=== PATIENT | female | born 1925 | race Caucasian/White ===

== ENCOUNTER 2016-12-11 16:16 | Emergency (ER) | payer MEDICARE, OTHER ==
[~2016-12-11] VITALS: Ht 162.6 cm; Wt 65.3 kg
[~2016-12-11 16:16] MED LIST: Z.0.UNABLE TO OBTAIN; ZOFR4TAB OR
[2016-12-11 16:20] VITALS: BP 158/99; PULSE 71; RESP 16; TEMP 97.8; O2SAT 95
[2016-12-11] MEDS ORDERED: OXYB5TAB10 PO (16:34)
[2016-12-11] MEDS ORDERED: LISI-515 PO (16:34)
[2016-12-11] MEDS ORDERED: LIDOCAINE 1%/EPINEPHrine 1:100,000 SOLN 20 ML VIAL INFIL ONE (16:45)
[2016-12-11] MEDS ORDERED: LIDOCAINE 1%/EPINEPHrine 1:100,000 SOLN 30 ML VIAL INFIL ONE (16:45)
[2016-12-11] MEDS ORDERED: DIPHTH/TETANUS/ACEL PERTUSSIS (BOOSTER) 0.5 ML VIAL/PFS IM ONE (16:45)
--- NOTE | 2016-12-11 17:10 | RADRPT ---
EXAM DATE/TIME: 12/11/2016 16:40 [facility] COMPARISON: No previous studies available for comparison. INDICATIONS : Laceration lower leg. MEDICAL HISTORY : None. SURGICAL HISTORY : None. ENCOUNTER: Initial ACUITY: 1 day PAIN SCORE: 10 LOCATION: Right tibia fibula FINDINGS: No acute fracture or dislocation of the right tibia or fibula is noted. No radiopaque foreign body i s noted. Degenerative changes are noted involving the patellofemoral and femoral tibial joints. CONCLUSION: 1. No acute fracture or dislocation of the right tibia or fibula. 2. No radiopaque foreign body identified. 3. Degenerative changes involving the patellofemoral and femoral tibial joints. Kevin Cunningham MD on December 11, 2016 at 17:02 Board Certified Radiologist. This report was verified electronically.
--- NOTE | 2016-12-11 18:05 | PD ---
HPI Chief Complaint: Fall Time Seen by Provider: 16:26 Travel History International Travel<30 days: No Contact w/Intl Traveler<30days: No Traveled to known affect area: No History of Present Illness HPI 89-year-old woman, visiting from out of town, slipped and fell in the shower. She states there is a little lip to get in and she lost her balance and fell. She has a large skin tear on her right leg. She denies hitting her head. Denies any head neck or back pain. No other complaints. History Past Medical History Narrative Medical Hypertension Social History Alcohol Use: No Tobacco Use: No Allergies-Medications (Allergen,Severity, Reaction): Coded Allergies: No Known Allergies (Unverified , 12/11/16) Reported Meds & Prescriptions Reported Meds & Active Scripts Active Reported Ditropan (Oxybutynin Chloride) 5 Mg Tab 5 Mg PO Q12HR Lisinopril 20 Mg Tab 20 Mg PO DAILY Review of Systems Except as stated in HPI: all other systems reviewed are Neg Physical Exam Narrative GENERAL: Well-appearing 89-year-old woman, no acute distress. SKIN: Warm and dry. CARDIOVASCULAR: Warm and well perfused. RESPIRATORY: Normal rate and effort. MUSCULOSKELETAL: Large approximately 12 cm deep skin tear type laceration to the right calf. Skin tear is very superficial in the middle but progresses to a deep laceration at more vertical towards the edges, and into the subcutaneous tissue throughout. There is no significant tenderness in other areas. No bony tenderness. NEUROLOGICAL: Awake and alert. No gross deficits. Data Data Last Documented VS Vital Signs Date Time Temp Pulse Resp B/P Pulse Ox O2 Delivery O2 Flow Rate FiO2 12/11/16 16:20 97.8 71 16 158/99 95 Orders Tibia/Fibula (Ap/Lat) (12/11/16 ) [id number] (Booster) Inj (Boostrix (12/11/16 16:45) Lidocai-Epi 1%-1:100,000 Inj (Xylocaine- (12/11/16 16:45) Lidocai-Epi 1%-1:100,000 Inj (Xylocaine- (12/11/16 16:45) MDM Medical Decision Making Medical Screen Exam Complete: Yes Emergency Medical Condition: Yes Interpretation(s) Right leg x-ray was negative Differential Diagnosis Skin tear, laceration, bony injury, other Narrative Course Medical decision making INITIAL: 89-year-old woman who presents to the emergency department complaining of laceration and skin tears in the right leg. X-ray was negative. Laceration was repaired primarily through complex laceration repair techniques including taping the edge of the wound with Steri-Strips, using vertical mattress sutures to reduce tension, horizontal mattress sutures on the edges, and maintaining skin approximation with Steri-Strips. Procedures Procedure Narrative Laceration repair: Complex laceration, approximately 15 cm, in a patient with edema in the leg and soft elderly thin skin. The wound was anesthetized 1% lidocaine with epinephrine. Using clamps with 1 L of sterile saline under pressure. Was then cleansed with chlorhexidine and Betadine and sterilely prepped. Steri-Strips were placed along the edges of the wound, avoiding the extremely thin areas of the skin tear toward the middle of the wound on the posterior side. The wound was then pulled together several areas with vertical mattress sutures using 3-0 Ethilon. Around the edges several horizontal mattress sutures were placed. A couple sutures in place in the middle to maintain wound approximation. Dermabond was then used to maintain approximation of the skin edges. Patient tolerated well. Sterile dressing was applied. In total 12 sutures were placed. This was a complex laceration repair. Diagnosis Primary Impression: Leg laceration Patient Instructions: General Instructions Additional Instructions: Keep wound clean and dry. Do not wet for 24 hours. After 24 hours and clean the wound gently with soap and water. Gently clean wound twice daily with soap and water. Do not soak wound. No swimming, hot tubs, or allowing wound to get too wet. Return to the emergency department for any worsening pain, swelling, redness, significant bleeding, or any other new or worsening symptoms. Keep leg wrapped with compression dressing. Keep leg elevated as much as possible. Return to the emergency department in 14 days for suture removal. Keep leg wrapped with compression dressing for 1 month until completely healed. Med/Other Pt SpecificInfo: No Change to Meds Disposition: 01 DISCHARGE HOME Condition: Stable Woo Moss MD Dec 11, 2016 18:05
== END 2016-12-11 18:11 | disposition home or self-care (01) ==
LOC: PHED 16:16
DX: S81.811A Laceration without foreign body, right lower leg, initial encounter (principal); I10 Essential (primary) hypertension; Z23 Encounter for immunization; W18.2XXA Fall in (into) shower or empty bathtub, initial encounter; Y93.9 Activity, unspecified; Y92.9 Unspecified place or not applicable; Y99.9 Unspecified external cause status
CPT/HCPCS: 13121; 13122; 73590; 90471; 90715

== ENCOUNTER 2016-12-15 19:23 | Emergency (ER) | payer MEDICARE, OTHER ==
[~2016-12-15] VITALS: Ht 162.6 cm; Wt 68.5 kg
[~2016-12-15 19:23] MED LIST changes: +LISI-515 PO; +OXYB5TAB10 PO; -Z.0.UNABLE TO OBTAIN; -ZOFR4TAB OR
[2016-12-15 19:26] VITALS: BP 175/101; PULSE 68; RESP 18; TEMP 98.1; O2SAT 95
[2016-12-15 19:52] VITALS: BP 191/86
[2016-12-15] MEDS ORDERED: CLINDAMYCIN 150 MG CAP PO ONE (20:00)
--- NOTE | 2016-12-15 20:01 | PD ---
HPI Chief Complaint: Skin Problem Time Seen by Provider: 19:33 Travel History International Travel<30 days: No Contact w/Intl Traveler<30days: No Traveled to known affect area: No History of Present Illness HPI 89-year-old female who was seen in the emergency department on 12/11/16 for complicated right leg laceration that was repaired at that time, here today with her son for evaluation of the laceration for possible infection. The son has been performing dressing changes twice daily and has been cleansing the wound with soap and water. He has also been applying a pressure dressing to the right lower extremity. They started noticing some erythema and warmth surrounding the wound yesterday, and it appeared to be a little bit worse today. Patient denies any pain to the extremity. She has not had any fevers or chills. PFSH Past Medical History Cardiovascular Problems: Yes (HTN) Diminished Hearing: No Genitourinary: Yes (STRESS INCONTINENCE) Hypertension: Yes Medical other: Yes (MACULAR DEGENERATION) Immunizations Current: Yes ?: Not Menopausal: Yes : 3 Para: 3 Past Surgical History Hysterectomy: Yes Joint Replacement: Yes (RIGHT HIP) Tonsillectomy: Yes Social History Alcohol Use: No Tobacco Use: No Substance Use: No Allergies-Medications (Allergen,Severity, Reaction): Coded Allergies: No Known Allergies (Unverified , 12/15/16) Reported Meds & Prescriptions Reported Meds & Active Scripts Active Reported Ditropan (Oxybutynin Chloride) 5 Mg Tab 5 Mg PO Q12HR Lisinopril 20 Mg Tab 20 Mg PO DAILY Review of Systems Except as stated in HPI: all other systems reviewed are Neg Physical Exam Narrative GENERAL: Pleasant, well-developed, well-nourished, comfortable, no acute distress. SKIN: Right lateral leg laceration with [address] with small area of surrounding warmth and erythema, no purulent drainage, no induration, no crepitus, no red streaks. HEAD: Atraumatic. Normocephalic. EYES: Pupils equal and round. No scleral icterus. No injection or drainage. ENT: Mucous membranes pink and moist. NECK: Trachea midline. No JVD. CARDIOVASCULAR: Regular rate and rhythm. Bilateral dorsalis pedis pulses are brisk and equal. RESPIRATORY: No accessory muscle use. Clear to auscultation. Breath sounds equal bilaterally. GASTROINTESTINAL: Abdomen soft, non-tender, nondistended. MUSCULOSKELETAL: Skin exam as above. Moderate bilateral lower extremity edema. Bilateral calves are supple and nontender. NEUROLOGICAL: Awake and alert. No obvious cranial nerve deficits. Motor grossly within normal limits. Normal speech. PSYCHIATRIC: Appropriate mood and affect; insight and judgment normal. Data Data Last Documented VS Vital Signs Date Time Temp Pulse Resp B/P Pulse Ox O2 Delivery O2 Flow Rate FiO2 12/15/16 19:52 191/86 12/15/16 19:26 98.1 68 18 95 Orders Clindamycin (Cleocin) (12/15/16 20:00) Tibia/Fibula (Ap/Lat) (12/15/16 ) Wound Culture And Gram Stain (12/15/16 20:17) [facility] Medical Decision Making Medical Screen Exam Complete: Yes Emergency Medical Condition: Yes Medical Record Reviewed: Yes Differential Diagnosis Cellulitis, wound infection, necrotizing fasciitis unlikely, Narrative Course Vital signs show heart rate 68, blood pressure 175/101, pulse ox 95% on room air , oral temp of 98.1F. Right tib-fib x-ray: CONCLUSION: Soft tissue prominence and apparent edema with no evidence of fracture or malalignment. This is an 89-year-old female who 4 days ago presented to the emergency department with complicated right leg laceration that was repaired in the emergency department. She returns today with her son for evaluation of warmth and erythema surrounding the wound. On exam there is a mild area of surrounding warmth and erythema. Sutures are in place and are reinforced with Steri-Strips along the wound edges. There is no crepitus on exam. No signs of lymphangitis. Patient overall appears well. Her vital signs show that she is slightly hypertensive. No signs of sepsis. Because of the complicated repair to this wound, I do not believe it is stone to remove sutures at this time as this may lead to worsening further complications. Plan is to start her on clindamycin. Patient's son has been doing an excellent job performing wound care. She should return to the emergency department in 48-72 hours for a wound check. Both patient and the patient's son were informed on when they should return sooner. They verbalized understanding and agreement with plan. Diagnosis Primary Impression: Cellulitis of right leg Referrals: EMERGENCY DEPARTMENT 3 days Additional Instructions: Return to the emergency department in 48-72 hours for wound check. Return to the emergency Department sooner for worsening symptoms or any other concerns as discussed. Scripts Clindamycin 150 Mg [id number] Mg PO Q6H 10 Days Ref 0 Prov:Nima Lopez MD 12/15/16 Disposition: 01 DISCHARGE HOME Condition: Stable Nima Lopez MD Dec 15, 2016 20:01
--- NOTE | 2016-12-15 20:31 | RADRPT ---
EXAM DATE/TIME: 12/15/2016 20:09 [facility] COMPARISON: TIBIA/FIBULA RIGHT (AP/LAT), December 11, 2016, 16:40. INDICATIONS : Right lower leg inflammation post fall. MEDICAL HISTORY : None. SURGICAL HISTORY : None. ENCOUNTER: [facility] ACUITY: 4 - 6 days PAIN SCORE: 6/10 LOCATION: Right lower leg FINDINGS: Two view examination of the right tibia demonstrates no evidence of fracture or dislocation. Bony mi neralization is normal. There is diffuse soft tissue prominence apparent edema. There are faint benig n soft tissue calcifications. CONCLUSION: Soft tissue prominence and apparent edema with no evidence of fracture or malalignment. Daniel Sanchez MD on December 15, 2016 at 20:28 Board Certified Radiologist. This report was verified electronically.
[2016-12-15] MEDS ORDERED: CLIN1CAP5 PO (20:39)
== END 2016-12-15 20:52 | disposition home or self-care (01) ==
LOC: PHED 19:23
DX: L03.115 Cellulitis of right lower limb (principal); I10 Essential (primary) hypertension; H35.30 Unspecified macular degeneration
CPT/HCPCS: 73590; 86403; 87070; 87186; 87205; 99284

== ENCOUNTER 2016-12-19 16:34 | Inpatient (IN) | payer MEDICARE, OTHER ==
[~2016-12-19] VITALS: Ht 162.6 cm; Wt 68.5 kg
[~2016-12-19 16:34] MED LIST changes: +CLIN1CAP5 PO
[2016-12-19 16:44] VITALS: BP 124/78; PULSE 63; RESP 16; TEMP 98; O2SAT 95
[2016-12-19] MEDS ORDERED: VANCOMYCIN INJ 1,000 MG in SODIUM CHLOR 0.9% 250 ML INJ 250 ML IV STA (17:44)
--- NOTE | 2016-12-19 17:50 | PD ---
HPI Chief Complaint: Wound/Suture/Staple Re-Check Time Seen by Provider: 17:15 Travel History International Travel<30 days: No Contact w/Intl Traveler<30days: No Traveled to known affect area: No History of Present Illness HPI 89-year-old female presents to the emergency Department for reevaluation of right lower extremity cellulitis. Patient was seen in the emergency department on December 11 with a right lower extremity laceration caused by a fall in the shower. The wound was sutured closed at that time. On December 15 patient was seen again in the ER and diagnosed with right lower externa cellulitis. She was discharged home on clindamycin. She presents today for recheck of the wound. Patient's son who is her caregiver reports that she has had generalized weakness and another fall since her last visit. He reports that she has difficulty taking the clindamycin capsules. He indicates that he is concerned that she is declining. PFSH Past Medical History Narrative Medical Significant for hypertension Cardiovascular Problems: Yes Diminished Hearing: No Genitourinary: Yes (STRESS INCONTINENCE) Hypertension: Yes Immunizations Current: Yes ?: Not Menopausal: Yes : 3 Para: 3 Past Surgical History Hysterectomy: Yes Joint Replacement: Yes (RIGHT HIP) Tonsillectomy: Yes Social History Alcohol Use: No Tobacco Use: No Substance Use: No Allergies-Medications (Allergen,Severity, Reaction): Coded Allergies: No Known Allergies (Unverified , 12/19/16) Reported Meds & Prescriptions Reported Meds & Active Scripts Active Clindamycin (Clindamycin HCl) 150 Mg Cap 450 Mg PO Q6H 10 Days Reported Ditropan (Oxybutynin Chloride) 5 Mg Tab 5 Mg PO Q12HR Lisinopril 20 Mg Tab 20 Mg PO DAILY Review of Systems Except as stated in HPI: all other systems reviewed are Neg General / Constitutional: No: Fever HENT: No: Headaches Cardiovascular: No: Chest Pain or Discomfort Respiratory: No: Shortness of Breath Genitourinary: Positive: Frequency Skin: Positive Other (15 cm laceration right lower extremity sutures intact with surrounding erythema no drainage) Physical Exam Narrative GENERAL: Alert elderly female no acute distress SKIN: Large laceration approximately 15 cm right lower extremity with sutures and Steri-Strips in place. The wound has extensive surrounding erythema and mild swelling. No drainage from the site. HEAD: Atraumatic. Normocephalic. EYES: Pupils equal and round. No scleral icterus. No injection or drainage. ENT: No nasal bleeding or discharge. Mucous membranes pink and moist. NECK: Trachea midline. No JVD. CARDIOVASCULAR: Regular rate and rhythm. No murmur appreciated. RESPIRATORY: No accessory muscle use. Clear to auscultation. Breath sounds equal bilaterally. GASTROINTESTINAL: Abdomen soft, non-tender, nondistended. Hepatic and splenic margins not palpable. MUSCULOSKELETAL: No obvious deformities. No clubbing. No cyanosis. No edema. NEUROLOGICAL: Awake and alert. No obvious cranial nerve deficits. Motor grossly within normal limits. Normal speech. PSYCHIATRIC: Appropriate mood and affect; insight and judgment normal. Data Data Last Documented VS Vital Signs Date Time Temp Pulse Resp B/P Pulse Ox O2 Delivery O2 Flow Rate FiO2 12/19/16 16:44 98.0 63 16 124/78 95 Orders Complete Blood Count With Diff (12/19/16 17:44) Comprehensive Metabolic Panel (12/19/16 17:44) Lactic Acid Sepsis Protocol (12/19/16 17:44) Urinalysis - C+S If Indicated (12/19/16 17:44) Blood Culture (12/19/16 17:44) Iv Access Insert/Monitor (12/19/16 17:44) Vancomycin Inj (Vancomycin Inj) (12/19/16 17:44) Urine Culture (12/19/16 18:00) Ceftriaxone Inj (Rocephin Inj) (12/19/16 19:15) Labs Laboratory Tests Test 12/19/16 12/19/16 12/19/16 18:00 18:05 18:10 Urine Collection Type CLEAN CATCH Urine Color STRAW Urine Turbidity SLIGHT Urine pH 5.5 Urine Specific [place] 1.008 Urine Protein NEG mg/dL Urine Glucose (UA) NEG mg/dL Urine Ketones NEG mg/dL Urine Occult Blood NEG Urine Nitrite POS Urine Bilirubin NEG Urine Leukocyte Esterase SMALL Urine RBC 0-3 /hpf Urine WBC 50-99 /hpf Urine WBC Clumps MOD Urine Squamous Epithelial > 8 /hpf Cells Urine Amorphous Sediment FEW Urine Bacteria MOD /hpf Microscopic Urinalysis Comment CULTURE INDICATED Urine Collection Time 1800 White Blood Count 11.1 TH/MM3 Red Blood Count 3.72 MIL/MM3 Hemoglobin 11.0 GM/DL Hematocrit 33.7 % Mean Corpuscular Volume 90.7 FL Mean Corpuscular Hemoglobin 29.6 PG Mean Corpuscular Hemoglobin 32.6 % Concent Red Cell Distribution Width 13.7 % Platelet Count 277 TH/MM3 Mean Platelet Volume 8.4 FL Neutrophils (%) (Auto) 79.0 % Lymphocytes (%) (Auto) 12.1 % Monocytes (%) (Auto) 6.7 % Eosinophils (%) (Auto) 1.8 % Basophils (%) (Auto) 0.4 % Neutrophils # (Auto) 8.9 TH/MM3 Lymphocytes # (Auto) 1.3 TH/MM3 Monocytes # (Auto) 0.7 TH/MM3 Eosinophils # (Auto) 0.2 TH/MM3 Basophils # (Auto) 0.0 TH/MM3 CBC Comment DIFF FINAL Differential Comment Sodium Level 138 MEQ/L Potassium Level 4.4 MEQ/L Chloride Level 103 MEQ/L Carbon Dioxide Level 27.5 MEQ/L Anion Gap 8 MEQ/L Blood Urea Nitrogen 30 MG/DL Creatinine 0.97 MG/DL Estimat Glomerular Filtration 54 ML/MIN Rate Random Glucose 108 MG/DL Calcium Level 8.8 MG/DL Total Bilirubin 0.4 MG/DL Aspartate Amino Transf 26 U/L (AST/SGOT) Alanine Aminotransferase 26 U/L (ALT/SGPT) Alkaline Phosphatase 95 U/L Total Protein 7.0 GM/DL Albumin 3.2 GM/DL Lactic Acid Level 0.8 mmol/L MDM Medical Decision Making Medical Screen Exam Complete: Yes Emergency Medical Condition: Yes Differential Diagnosis Cellulitis failing outpatient oral antibiotics, wound infection, UTI Narrative Course 89-year-old female here for recheck of right lower extremity laceration with cellulitis. Patient sustained the injury on December 11 and was sutured here in emergency department. She was seen again on December 15 and diagnosed with cellulitis and discharged home with clindamycin. Patient presents today for recheck of the wound which does not appear clinically improved per Dr. Colbert who treated her on the . The son is also concerned about the patient's overall health reporting that she has generalized weakness and has had frequent falls. Labs ordered and reviewed. Patient has elevated white blood cell count of 11.1 , UA positive for nitrates, white blood cells, bacteria. Patient will be admitted to observation for right lower external cellulitis, failing outpatient treatment, UTI. Dr. Lopez attending physician spoke with Dr. Emerald Allison who agrees to admit patient for observation. Diagnosis Primary Impression: Cellulitis of right leg Additional Impressions: Failure of outpatient treatment UTI (urinary tract infection) Qualified Code: N30.00 - Acute cystitis without hematuria Admitting Information Admitting Physician Requests: Observation Yen Lee Dec 19, 2016 17:50
[2016-12-19 18:24] LABS: BLOOD, URINE NEG (NEG); GLUCOSE,URINE NEG (NEG); KETONE, URINE NEG (NEG); NITRITE,URINE POS (NEG); PH, URINE 5.5 (5.0-8.5)
[2016-12-19 18:26] LABS: AUTOMATED NEUTROPHIL # 8.9 TH/MM3 (1.8-7.7); BASOPHIL % 0.4 % (0.0-2.0); EOSINOPHIL # 0.2 TH/MM3 (0-0.4); EOSINOPHIL % 1.8 % (0.0-4.0); HEMATOCRIT 33.7 % (35.0-46.0); HEMO FLAGS DIFF FINAL; LYMPH % 12.1 % (9.0-44.0); LYMPHOCYTE # 1.3 TH/MM3 (1.0-4.8); MEAN CELL VOLUME 90.7 FL (80.0-100.0); MEAN CORPUSCULAR HEMOGLOBIN 29.6 PG (27.0-34.0); MEAN CORPUSCULAR HGB CONC 32.6 % (32.0-36.0); MONO % 6.7 % (0.0-8.0); PLATELET COUNT 277 TH/MM3 (150-450); RED BLOOD COUNT 3.72 MIL/MM3 (4.00-5.30); RED CELL DISTRIBUTION WIDTH 13.7 % (11.6-17.2); WHITE BLOOD COUNT 11.1 TH/MM3 (4.0-11.0)
[2016-12-19 18:47] LABS: CHLORIDE 103 MEQ/L (98-107); POTASSIUM 4.4 MEQ/L (3.5-5.1); SODIUM (NA) 138 MEQ/L (136-145)
[2016-12-19 18:51] LABS: ANION GAP 8 MEQ/L (5-15); BICARBONATE 27.5 MEQ/L (21.0-32.0); BLOOD UREA NITROGEN 30 MG/DL (7-18)
[2016-12-19 18:54] LABS: ALT (GPT) 26 U/L (10-53); AST (GOT) 26 U/L (15-37); GLOMERULAR FILTRATION RATE 54 ML/MIN (>89)
[2016-12-19 18:54] LABS: METHOD OF COLLECTION CLEAN CATCH; URINE COLOR STRAW (YELLW/STRAW)
[2016-12-19 18:55] LABS: BACTERIA, URINE MOD /hpf; COMMENT (UR) CULTURE INDICATED; CULTURE IF INDICATED CULTURE INDICATED; RBC, URINE 0-3 /hpf (0-3); SQUAMOUS EPITHELIAL CELL URINE > 8 /hpf (0-5)
[2016-12-19 18:55] LABS: TOTAL BILIRUBIN ADULT 0.4 MG/DL (0.2-1.0)
[2016-12-19 18:57] LABS: ALKALINE PHOSPHATASE 95 U/L (45-117)
[2016-12-19] MEDS ORDERED: SODIUM CHLORIDE 0.9% FLUSH 10 ML FLUSH IV FLUSH PRN (19:15)
[2016-12-19] MEDS ORDERED: ACETAMINOPHEN 325 MG TAB PO PRN (19:15)
[2016-12-19] MEDS ORDERED: MAGNESIUM HYDROXIDE SUSP 30 ML CUP PO PRN (19:15)
[2016-12-19] MEDS ORDERED: LACTULOSE SYRUP 20 GM/30 ML CUP PO PRN (19:15)
[2016-12-19] MEDS ORDERED: BISACODYL 10 MG SUPP RECTAL PRN (19:15)
[2016-12-19] MEDS ORDERED: ONDANSETRON HCL 4 MG/2 ML VIAL IVP PRN (19:15)
[2016-12-19] MEDS ORDERED: SENNOSIDES 8.6 MG TAB PO PRN (19:15)
[2016-12-19] MEDS ORDERED: cefTRIAXone INJ 1,000 MG in SODIUM CHLORIDE 0.9% INJ 100 ML IV ONE (19:15)
[2016-12-19] MEDS ORDERED: Vancomycin Consult Pharmacy 1 EA OTHER SCH (19:15)
--- NOTE | 2016-12-19 19:18 | PD ---
Data Data Last Documented VS Vital Signs Date Time Temp Pulse Resp B/P Pulse Ox O2 Delivery O2 Flow Rate FiO2 12/19/16 16:44 98.0 63 16 124/78 95 Orders Complete Blood Count With Diff (12/19/16 17:44) Comprehensive Metabolic Panel (12/19/16 17:44) Lactic Acid Sepsis Protocol (12/19/16 17:44) Urinalysis - C+S If Indicated (12/19/16 17:44) Blood Culture (12/19/16 17:44) Iv Access Insert/Monitor (12/19/16 17:44) Vancomycin Inj (Vancomycin Inj) (12/19/16 17:44) Urine Culture (12/19/16 18:00) Ceftriaxone Inj (Rocephin Inj) (12/19/16 19:15) Labs Laboratory Tests Test 12/19/16 12/19/16 12/19/16 18:00 18:05 18:10 Urine Collection Type CLEAN CATCH Urine Color STRAW Urine Turbidity SLIGHT Urine pH 5.5 Urine Specific [place] 1.008 Urine Protein NEG mg/dL Urine Glucose (UA) NEG mg/dL Urine Ketones NEG mg/dL Urine Occult Blood NEG Urine Nitrite POS Urine Bilirubin NEG Urine Leukocyte Esterase SMALL Urine RBC 0-3 /hpf Urine WBC 50-99 /hpf Urine WBC Clumps MOD Urine Squamous Epithelial > 8 /hpf Cells Urine Amorphous Sediment FEW Urine Bacteria MOD /hpf Microscopic Urinalysis Comment CULTURE INDICATED Urine Collection Time 1800 White Blood Count 11.1 TH/MM3 Red Blood Count 3.72 MIL/MM3 Hemoglobin 11.0 GM/DL Hematocrit 33.7 % Mean Corpuscular Volume 90.7 FL Mean Corpuscular Hemoglobin 29.6 PG Mean Corpuscular Hemoglobin 32.6 % Concent Red Cell Distribution Width 13.7 % Platelet Count 277 TH/MM3 Mean Platelet Volume 8.4 FL Neutrophils (%) (Auto) 79.0 % Lymphocytes (%) (Auto) 12.1 % Monocytes (%) (Auto) 6.7 % Eosinophils (%) (Auto) 1.8 % Basophils (%) (Auto) 0.4 % Neutrophils # (Auto) 8.9 TH/MM3 Lymphocytes # (Auto) 1.3 TH/MM3 Monocytes # (Auto) 0.7 TH/MM3 Eosinophils # (Auto) 0.2 TH/MM3 Basophils # (Auto) 0.0 TH/MM3 CBC Comment DIFF FINAL Differential Comment Sodium Level 138 MEQ/L Potassium Level 4.4 MEQ/L Chloride Level 103 MEQ/L Carbon Dioxide Level 27.5 MEQ/L Anion Gap 8 MEQ/L Blood Urea Nitrogen 30 MG/DL Creatinine 0.97 MG/DL Estimat Glomerular Filtration 54 ML/MIN Rate Random Glucose 108 MG/DL Calcium Level 8.8 MG/DL Total Bilirubin 0.4 MG/DL Aspartate Amino Transf 26 U/L (AST/SGOT) Alanine Aminotransferase 26 U/L (ALT/SGPT) Alkaline Phosphatase 95 U/L Total Protein 7.0 GM/DL Albumin 3.2 GM/DL Lactic Acid Level 0.8 mmol/L MDM Supervised Visit with ABRIL: Yes Narrative Course I, Dr. Lopez, have reviewed the advance practice practitioner's documentation and am in agreement, met with the patient face to face, made the diagnosis, and the medical decision making was done by me. . See her note for further details. Briefly this is an 89-year-old female here for reevaluation of right leg wound. About a week ago the patient had fallen and sustained a laceration to her right leg. This was repaired. She was evaluated by me about 4 days ago in the emergency department for possible wound infection. She did have some warmth and erythema surrounding the right leg wound, and was started on clindamycin. She is here again with her son for reevaluation of the wound. They believe the wound/area of cellulitis has slightly improved. Some voices concern that the patient has been somewhat confused lately, not acting completely like herself, and also very weak. She fell to the ground yesterday and was unable to get herself up. As far as her wound goes, she has been compliant with clindamycin, however she is having a difficult time swallowing these capsules. On physical exam the patient has a right anterior/lateral leg wound with sutures in place with surrounding warmth and erythema. There is no crepitus. No necrosis. A wound culture was performed 4 days ago and grew out staph aureus that is pansensitive. Patient was given a dose of IV vancomycin shortly after arrival to the emergency department. Her lab work shows a slight leukocytosis with neutrophilia. UA suggestive of UTI. She was given a dose of Rocephin for her UTI. With the patient and the patient's son were made aware of all findings. Patient will be admitted for further treatment and evaluation of right leg cellulitis with failed outpatient therapy, UTI. Case discussed with hospitalist Dr. Allison who will admit the patient to her service. Nima Lopez MD Dec 19, 2016 19:18
[2016-12-19] MEDS ORDERED: MORPHINE SULFATE 8 MG/ML INJ IV PUSH PRN (19:30)
[2016-12-19 20:00] VITALS: BP 180/96; PULSE 61; RESP 16; TEMP 96.7; O2SAT 96
[2016-12-19] MEDS: SODIUM CHLORIDE 0.9% FLUSH 10 ML FLUSH IV FLUSH SCH (21:00)
[2016-12-19] MEDS: SODIUM CHLOR 0.9% 1000 ML INJ 1,000 ML IV SCH (21:08)
[2016-12-19] MEDS: DOCUSATE SODIUM 50 MG/SENNA 8.6 MG TAB PO SCH (21:10)
[2016-12-19] MEDS: ACETAMINOPHEN/HYDROcodone 325 MG/5 MG TAB PO PRN (21:10)
[2016-12-20] VITALS: BP 178/82; PULSE 67; RESP 16; TEMP 97.1; O2SAT 96
[2016-12-20] MEDS: SODIUM CHLOR 0.9% 1000 ML INJ 1,000 ML IV SCH (05:10)
[2016-12-20 06:44] LABS: AUTOMATED NEUTROPHIL # 8.3 TH/MM3 (1.8-7.7); BASOPHIL # 0.1 TH/MM3 (0-0.2); BASOPHIL % 0.8 % (0.0-2.0); EOSINOPHIL # 0.2 TH/MM3 (0-0.4); HEMATOCRIT 31.4 % (35.0-46.0); HEMO FLAGS DIFF FINAL; LYMPH % 12.4 % (9.0-44.0); LYMPHOCYTE # 1.3 TH/MM3 (1.0-4.8); MEAN CORPUSCULAR HEMOGLOBIN 29.8 PG (27.0-34.0); MEAN CORPUSCULAR HGB CONC 32.7 % (32.0-36.0); NEUT % 77.8 % (16.0-70.0); PLATELET COUNT 265 TH/MM3 (150-450); RED BLOOD COUNT 3.45 MIL/MM3 (4.00-5.30); RED CELL DISTRIBUTION WIDTH 13.6 % (11.6-17.2); WHITE BLOOD COUNT 10.6 TH/MM3 (4.0-11.0)
[2016-12-20 06:49] LABS: CHLORIDE 108 MEQ/L (98-107); POTASSIUM 3.9 MEQ/L (3.5-5.1); SODIUM (NA) 143 MEQ/L (136-145)
[2016-12-20 06:54] LABS: ANION GAP 9 MEQ/L (5-15); BICARBONATE 26.4 MEQ/L (21.0-32.0)
[2016-12-20 06:55] LABS: BLOOD UREA NITROGEN 23 MG/DL (7-18)
[2016-12-20 06:58] LABS: ALT (GPT) 21 U/L (10-53); AST (GOT) 22 U/L (15-37); GLOMERULAR FILTRATION RATE 66 ML/MIN (>89)
[2016-12-20 06:59] LABS: TOTAL BILIRUBIN ADULT 0.4 MG/DL (0.2-1.0)
[2016-12-20 07:00] LABS: ALKALINE PHOSPHATASE 80 U/L (45-117)
[2016-12-20 08:00] VITALS: BP 196/99; PULSE 76; RESP 22; TEMP 96.8; O2SAT 95
--- NOTE | 2016-12-20 08:21 | RADRPT ---
EXAM DATE/TIME: 12/20/2016 07:49 [facility] COMPARISON: No previous studies available for comparison. INDICATIONS : Bilateral leg swelling. MEDICAL HISTORY : Hypertension. SURGICAL HISTORY : Tonsillectomy.Hysterectomy. Right hip replacement. Recent right leg wound repair. ENCOUNTER: Initial ACUITY: 1 day PAIN SCORE: 1/10 LOCATION: Bilateral legs. TECHNIQUE: Venous ultrasound of the left and right leg was performed from the inguinal ligament to the proximal calf. Real-time, color Doppler and spectral tracing, compression and augmentation techniques were us ed. FINDINGS: RIGHT LEG: There is normal compressibility of the deep venous system from the inguinal region to the proximal ca lf. No echogenic clot is seen in the lumen of the common femoral, femoral, popliteal, and posterior tibial veins. There is a normal response of the venous system to proximal and distal augmentation an d respiration. LEFT LEG: There is normal compressibility of the deep venous system from the inguinal region to the proximal ca lf. No echogenic clot is seen in the lumen of the common femoral, femoral, popliteal, and posterior tibial veins. There is a normal response of the venous system to proximal and distal augmentation an d respiration. CONCLUSION: Subcutaneous edema without DVT. Guillermo Plaza MD FACR on December 20, 2016 at 8:18 Board Certified Radiologist. This report was verified electronically.
[2016-12-20] MEDS: LISINOPRIL 20 MG TAB PO SCH (10:24)
[2016-12-20] MEDS: ACETAMINOPHEN/HYDROcodone 325 MG/5 MG TAB PO PRN (10:25)
[2016-12-20] MEDS: DOCUSATE SODIUM 50 MG/SENNA 8.6 MG TAB PO SCH (10:25)
[2016-12-20] MEDS: SODIUM CHLORIDE 0.9% FLUSH 10 ML FLUSH IV FLUSH SCH ×2 (10:25→21:04)
--- NOTE | 2016-12-20 11:15 | HHI.FF ---
Face to Face Verification Diagnosis: (1) Cellulitis of right leg (2) Uncontrolled hypertension Home Health Nursing Order: Medical education Signs/symptoms of disease process Wound care and dressing changes Bus Boy Order: To Evaluate: Living conditions/environment, Support services Order: To Provide: Long range planning I have seen patient Sandy Fields on 12/20/16. My clinical findings support the need for the requested home health care services because: Ltd mobility - disease progression Med compliance is questionable Impaired cognition/judgement I certify that my clinical findings support that this patient is homebound because: Impaired cognitive ability/safety Nila Dasilva MD Dec 20, 2016 11:15
--- NOTE | 2016-12-20 11:15 | HHI.HP ---
HPI Service [facility] Primary Care Physician Non-Staff Admission Diagnosis RLE CELLULITIS, OUTPATIENT TX FAILURE, UTI Diagnoses: Chief Complaint: Right leg laceration with increased erythema and calor and increased confusion Travel History International Travel<30 Days: No Contact w/Intl Traveler <30 Da: No Traveled to Known Affected Are: No History of Present Illness Patient is a 89-year-old female with a history of cognitive impairment and hypertension. She was brought to the emergency room on December 11 after a fall in the shower which resulted in a 5 inch laceration on the lateral aspect of her right leg. This was sutured in the emergency room and the patient was sent home. She did come back to the emergency room for increased erythema and changes of cellulitis. She was given oral clindamycin. She did come back to the emergency room yesterday with her son because of increased confusion and urinary incontinence and increased erythema at the area of the suture line. The patient was admitted for further antibiotics due to failed outpatient treatment. She has also been experiencing increased incontinence and frequency superimposed on her chronic bladder instability. Her primary care doctor in [place] and did double her dose of dig up and in the last week for the symptoms and patient's son with whom she lives says that she has been more confused. Patient's blood pressure also was 196/99 and the patient was complaining of a headache. These reasons the patient was admitted to the hospital Review of Systems Constitutional: DENIES: Diaphoretic episodes, Fatigue, Fever, Weight gain, Weight loss, Chills, Dizziness, Change in appetite, Night Sweats Endocrine: DENIES: Abnorml menstrual pattern, Heat/cold intolerance, Polydipsia , Polyuria, Polyphagia Eyes: DENIES: Blurred vision, Diplopia, Eye inflammation, Eye pain, Vision loss , Photosensitivity, Double Vision Ears, nose, mouth, throat: DENIES: Tinnitus, Hearing loss, Vertigo, Nasal discharge, Oral lesions, Throat pain, Hoarseness, Ear Pain, Running Nose, Epistaxis, Sinus Pain, Toothache, Odynophagia Respiratory: DENIES: Apneas, Cough, Snoring, Wheezing, Hemoptysis, Sputum production, Shortness of breath Cardiovascular: DENIES: Chest pain, Palpitations, Syncope, Dyspnea on Exertion , PND, Lower Extremity Edema, Orthopnea, Claudication Gastrointestinal: DENIES: Abdominal pain, Black stools, Bloody stools, Constipation, Diarrhea, Nausea, Vomiting, Difficulty Swallowing, Anorexia Genitourinary: COMPLAINS OF: Urinary frequency, Urinary incontinence, Urgency, DENIES: Abnormal vaginal bleeding, Dysmenorrhea, Dyspareunia, Sexual dysfunction, Hematuria, Dysuria, Nocturia, Vaginal discharge Musculoskeletal: DENIES: Joint pain, Muscle aches, Stiffness, Joint Swelling, Back pain, Neck pain Integumentary: DENIES: Abnormal pigmentation, Pruritus, Rash, Nail changes, Breast masses, Breast skin changes, Nipple discharge Hematologic/lymphatic: DENIES: Bruising, Lymphadenopathy Immunologic/allergic: DENIES: Eczema, Urticaria Neurologic: DENIES: Abnormal gait, Headache, Localized weakness, Paresthesias, Seizures, Speech Problems, Tremor, Poor Balance Psychiatric: COMPLAINS OF: Anxiety, DENIES: Confusion, Mood changes, Depression, Hallucinations, Agitation, Suicidal Ideation, Homicidal Ideation, Delusions Past Family Social History Past Medical History Hypertension Urinary incontinence Cognitive impairment Past Surgical History Right hip replacement Hysterectomy Tonsillectomy Reported Medications Reviewed in the medical record, recently started clindamycin and double the dose of the triptan per her primary doctor Allergies: Coded Allergies: No Known Allergies (Unverified , 12/19/16) Active Ordered Medications Reviewed in the medical record Family History Patient does not know her family history is irrelevant at her age of 89 Social History No current tobacco or alcohol dependency, recently relocated from [place] to live with her son here Physical Exam Vital Signs Vital Signs Date Time Temp Pulse Resp B/P Pulse Ox O2 Delivery O2 Flow Rate FiO2 12/20/16 08:00 96.8 76 22 196/99 95 12/20/16 00:00 97.1 67 16 178/82 96 12/19/16 22:10 18 12/19/16 20:00 96.7 61 16 180/96 96 12/19/16 16:44 98.0 63 16 124/78 95 Physical Exam GENERAL: This is a well-nourished, elderly well-developed patient, in no apparent distress. SKIN: Right leg status post 5 which lateral laceration with sutures intact, improved No rashes, ecchymoses or lesions. Cool and dry. HEAD: Atraumatic. Normocephalic. No temporal or scalp tenderness. EYES: Pupils equal round and reactive. Extraocular motions intact. No scleral icterus. No injection or drainage. ENT: Nose without bleeding, purulent drainage or septal hematoma. Throat without erythema, tonsillar hypertrophy or exudate. Uvula midline. Airway patent. NECK: Trachea midline. No JVD or lymphadenopathy. Supple, nontender, no meningeal signs. CARDIOVASCULAR: Regular rate and rhythm without murmurs, gallops, or rubs. RESPIRATORY: Clear to auscultation. Breath sounds equal bilaterally. No wheezes , rales, or rhonchi. GASTROINTESTINAL: Abdomen soft, non-tender, nondistended. No hepato-splenomegaly , or palpable masses. No guarding. MUSCULOSKELETAL: Extremities without clubbing, cyanosis, but there is bilateral edema. No joint tenderness, effusion, or edema noted. No calf tenderness. Negative Homans sign bilaterally. NEUROLOGICAL: Awake and alert. Cranial nerves II through XII intact. Motor and sensory grossly within normal limits. Five out of 5 muscle strength in all muscle groups. Normal speech. Laboratory Laboratory Tests Test 12/19/16 12/19/16 12/19/16 12/20/16 18:00 18:05 18:10 06:20 Urine Collection Type CLEAN CATCH Urine Color STRAW Urine Turbidity SLIGHT Urine pH 5.5 Urine Specific [place] 1.008 Urine Protein NEG Urine Glucose (UA) NEG Urine Ketones NEG Urine Occult Blood NEG Urine Nitrite POS Urine Bilirubin NEG Urine Leukocyte Esterase SMALL Urine RBC 0-3 Urine WBC 50-99 Urine WBC Clumps MOD Urine Squamous Epithelial > 8 Cells Urine Amorphous Sediment FEW Urine Bacteria MOD Microscopic Urinalysis Comment CULTURE INDICATED Urine Collection Time 1800 White Blood Count 11.1 10.6 Red Blood Count 3.72 3.45 Hemoglobin 11.0 10.3 Hematocrit 33.7 31.4 Mean Corpuscular Volume 90.7 91.0 Mean Corpuscular Hemoglobin 29.6 29.8 Mean Corpuscular Hemoglobin 32.6 32.7 Concent Red Cell Distribution Width 13.7 13.6 Platelet Count 277 265 Mean Platelet Volume 8.4 8.8 Neutrophils (%) (Auto) 79.0 77.8 Lymphocytes (%) (Auto) 12.1 12.4 Monocytes (%) (Auto) 6.7 7.0 Eosinophils (%) (Auto) 1.8 2.0 Basophils (%) (Auto) 0.4 0.8 Neutrophils # (Auto) 8.9 8.3 Lymphocytes # (Auto) 1.3 1.3 Monocytes # (Auto) 0.7 0.7 Eosinophils # (Auto) 0.2 0.2 Basophils # (Auto) 0.0 0.1 CBC Comment DIFF FINAL DIFF FINAL Differential Comment Sodium Level 138 143 Potassium Level 4.4 3.9 Chloride Level 103 108 Carbon Dioxide Level 27.5 26.4 Anion Gap 8 9 Blood Urea Nitrogen 30 23 Creatinine 0.97 0.82 Estimat Glomerular Filtration 54 66 Rate Random Glucose 108 90 Calcium Level 8.8 8.5 Total Bilirubin 0.4 0.4 Aspartate Amino Transf 26 22 (AST/SGOT) Alanine Aminotransferase 26 21 (ALT/SGPT) Alkaline Phosphatase 95 80 Total Protein 7.0 6.2 Albumin 3.2 3.0 Lactic Acid Level 0.8 Date/Time Procedure Status Source Growth 12/19/16 18:10 Aerobic Blood Culture Received Blood Peripheral Pending 12/19/16 18:10 Anaerobic Blood Culture Received Blood Peripheral Pending 12/19/16 18:00 Urine Culture Received Urine Clean Catch Pending Result Diagram: 12/20/16 0620 12/20/16 0620 Imaging Last Impressions Lower Extremity Ultrasound 12/20/16 0641 Signed Impressions: Service Date/Time: Tuesday, December 20, 2016 07:49 - CONCLUSION: Subcutaneous edema without DVT. Guillermo Plaza MD FACR Assessment and Plan Problem List: (1) UTI (urinary tract infection) ICD Code: N39.0 Status: Acute Plan: Follow up cultures, continue IV Rocephin and follow to adjust oral medicines add probiotic (2) Cellulitis of right leg ICD Code: L03.115 Status: Acute Plan: Failed outpatient treatment. Continue IV antibiotics and follow clinically No evidence of DVT (3) Uncontrolled hypertension ICD Code: I10 Status: Acute Plan: Resume lisinopril, hydralazine IV as needed (4) Cognitive impairment ICD Code: R41.89 Status: Acute Plan: May be early dementia per family however apparently grossly exacerbated due to symptoms of UTI Continue treatment for infection Continue support with family who is looking into assisted living and or home health care Physician Certification 2 Midnight Certification Type: Admission for Inpatient Services Order for Inpatient Services The services are ordered in accordance with Medicare regulations or non- Medicare payer requirements, as applicable. In the case of services not specified as inpatient-only, they are appropriately provided as inpatient services in accordance with the 2-midnight benchmark. Estimated LOS (days): 3 3 days is the estimated time the patient will need to remain in the hospital, assuming treatment plan goals are met and no additional complications. Post-Hospital Plan: Home Health Problem Qualifiers (1) UTI (urinary tract infection): Qualified Code: N30.00 - Acute cystitis without hematuria Nila Dasilva MD Dec 20, 2016 11:15
[2016-12-20 12:00] VITALS: BP 153/73; PULSE 74; RESP 18; TEMP 96.7; O2SAT 94
[2016-12-20] MEDS: LACTOBACILLUS ACIDOPHILUS 1 GM PACKET PO SCH ×2 (13:00→18:00)
[2016-12-20 16:00] VITALS: PULSE 71; RESP 20; TEMP 97; O2SAT 95
[2016-12-20] MEDS: hydrALAZINE HCL 20 MG/ML VIAL IV PUSH PRN (16:45)
[2016-12-20] MEDS: cefTRIAXone INJ 1,000 MG in SODIUM CHLORIDE 0.9% INJ 100 ML IV SCH (16:45)
[2016-12-20 20:00] VITALS: BP 144/82; PULSE 78; RESP 18; TEMP 96.4; O2SAT 96
[2016-12-20] MEDS: OXYBUTYNIN CHLORIDE 5 MG TAB PO SCH (21:04)
[2016-12-20] MEDS ORDERED: VANCOMYCIN INJ 1,250 MG in SODIUM CHLOR 0.9% 250 ML INJ 250 ML IV SCH (22:00)
[2016-12-21] VITALS: BP 138/78; PULSE 76; RESP 16; TEMP 96.4; O2SAT 96
[2016-12-21 08:00] VITALS: BP 188/94; PULSE 79; RESP 17; TEMP 97.6; O2SAT 95
[2016-12-21] MEDS: SODIUM CHLORIDE 0.9% FLUSH 10 ML FLUSH IV FLUSH SCH ×2 (09:00→21:16)
[2016-12-21] MEDS: LACTOBACILLUS ACIDOPHILUS 1 GM PACKET PO SCH ×3 (09:08→17:01)
[2016-12-21] MEDS: LISINOPRIL 20 MG TAB PO SCH (09:08)
[2016-12-21] MEDS: OXYBUTYNIN CHLORIDE 5 MG TAB PO SCH ×2 (09:08→21:15)
[2016-12-21] MEDS: hydrALAZINE HCL 20 MG/ML VIAL IV PUSH PRN (09:09)
--- NOTE | 2016-12-21 09:50 | HHI.PR ---
Subjective Remarks Patient seen today in follow-up for UTI and hypertension which is uncontrolled. Requiring IV hydralazine this morning. Urine cultures are still pending. Patient feels better however. Objective Vitals Vital Signs Date Time Temp Pulse Resp B/P Pulse Ox O2 Delivery O2 Flow Rate FiO2 12/21/16 08:00 97.6 79 17 188/94 95 12/21/16 00:00 96.4 76 16 138/78 96 12/20/16 20:00 96.4 78 18 144/82 96 12/20/16 16:00 97.0 71 20 95 12/20/16 12:00 96.7 74 18 153/73 94 I/O 12/20/16 12/20/16 12/20/16 12/21/16 12/21/16 12/21/16 07:00 15:00 23:00 07:00 15:00 23:00 Intake Total 480 ml 300 ml 180 ml Balance 480 ml 300 ml 180 ml Intake Oral 480 ml 300 ml 180 ml # Voids 6 2 1 2 # Bowel Movements 0 0 0 0 Result Diagram: 12/20/16 0620 12/20/16 0620 A/P Problem List: (1) UTI (urinary tract infection) ICD Code: N39.0 Status: Acute (2) Cellulitis of right leg ICD Code: L03.115 Status: Acute Plan: Continue oral antibiotics (3) Uncontrolled hypertension ICD Code: I10 Status: Acute Plan: Continue lisinopril, add hydralazine oral (4) Cognitive impairment ICD Code: R41.89 Status: Acute Plan: May be early dementia per family however apparently grossly exacerbated due to symptoms of UTI Continue treatment for infection Continue support with family who is looking into assisted living and or home health care Discharge Planning Discharge plans with home health care likely for tomorrow once cultures are returned Problem Qualifiers (1) UTI (urinary tract infection): Qualified Code: N30.00 - Acute cystitis without hematuria Nila Dasilva MD Dec 21, 2016 09:50
[2016-12-21 12:00] VITALS: BP 150/85; PULSE 81; RESP 16; TEMP 97.8; O2SAT 96
[2016-12-21] MEDS: CLINDAMYCIN 150 MG CAP PO SCH ×2 (12:58→17:01)
[2016-12-21] MEDS: hydrALAZINE HCL 25 MG TAB PO SCH ×2 (13:00→21:16)
[2016-12-21 16:00] VITALS: BP 145/79; PULSE 87; RESP 18; TEMP 98; O2SAT 95
[2016-12-21] MEDS: cefTRIAXone INJ 1,000 MG in SODIUM CHLORIDE 0.9% INJ 100 ML IV SCH (16:59)
[2016-12-21 20:00] VITALS: BP 148/81; PULSE 76; RESP 18; TEMP 97.1; O2SAT 95
[2016-12-22] VITALS: BP 135/67; PULSE 76; RESP 20; TEMP 96.7; O2SAT 96
[2016-12-22] MEDS: hydrALAZINE HCL 25 MG TAB PO SCH (05:26)
[2016-12-22] MEDS: CLINDAMYCIN 150 MG CAP PO SCH ×2 (05:26)
[2016-12-22 08:41] VITALS: BP 155/86; PULSE 76; RESP 16; TEMP 98.1; O2SAT 92
[2016-12-22] MEDS ORDERED: CIPROFLOXACIN 500 MG TAB PO SCH (09:00)
[2016-12-22] MEDS: LISINOPRIL 20 MG TAB PO SCH (09:02)
[2016-12-22] MEDS: LACTOBACILLUS ACIDOPHILUS 1 GM PACKET PO SCH (09:02)
[2016-12-22] MEDS: OXYBUTYNIN CHLORIDE 5 MG TAB PO SCH (09:02)
[2016-12-22] MEDS: SODIUM CHLORIDE 0.9% FLUSH 10 ML FLUSH IV FLUSH SCH (09:02)
[2016-12-22] MEDS ORDERED: LACTG PO (10:27)
[2016-12-22] MEDS ORDERED: CIPR-9 PO (10:27)
--- NOTE | 2016-12-22 10:31 | HHI.DCPOC ---
Discharge Care Plan Diagnosis: (1) UTI (urinary tract infection) (2) Uncontrolled hypertension (3) Leg laceration Goals to Promote Your Health * To prevent worsening of your condition and complications * To maintain your health at the optimal level Directions to Meet Your Goals Take your medications as prescribed Follow your dietary instruction Follow activity as directed Keep your appointments as scheduled Take your immunizations and boosters as scheduled If your symptoms worsen call your PCP, if no PCP go to Urgent Care Center or Emergency Room Smoking is Dangerous to Your Health. Avoid second hand smoke Call the 24-hour hour crisis hotline for domestic abuse at Nila Dasilva MD Dec 22, 2016 10:31
[2016-12-22] MEDS ORDERED: HYDR-3799 PO (10:36)
--- NOTE | 2016-12-22 10:36 | HHI.DS ---
Discharge Summary Admission Date Dec 19, 2016 at 19:18 Discharge Date: Dec 22, 2016 Admitting Diagnosis RLE CELLULITIS, OUTPATIENT TX FAILURE, UTI (1) UTI (urinary tract infection) ICD Code: N39.0 Diagnosis: Principal (2) Cellulitis of right leg ICD Code: L03.115 Diagnosis: Principal (3) Uncontrolled hypertension ICD Code: I10 (4) Cognitive impairment ICD Code: R41.89 Procedures none Brief History - From Admission Patient is a 89-year-old female with a history of cognitive impairment and hypertension. She was brought to the emergency room on December 11 after a fall in the shower which resulted in a 5 inch laceration on the lateral aspect of her right leg. This was sutured in the emergency room and the patient was sent home. She did come back to the emergency room for increased erythema and changes of cellulitis. She was given oral clindamycin. She did come back to the emergency room yesterday with her son because of increased confusion and urinary incontinence and increased erythema at the area of the suture line. The patient was admitted for further antibiotics due to failed outpatient treatment. She has also been experiencing increased incontinence and frequency superimposed on her chronic bladder instability. Her primary care doctor in [place] and did double her dose of dig up and in the last week for the symptoms and patient's son with whom she lives says that she has been more confused. Patient's blood pressure also was 196/99 and the patient was complaining of a headache. These reasons the patient was admitted to the hospital CBC/BMP: 12/20/16 0620 12/20/16 0620 Significant Findings Laboratory Tests Test 12/19/16 12/19/16 12/20/16 18:00 18:05 06:20 Urine Nitrite POS (NEG) Urine Leukocyte Esterase SMALL (NEG) Urine WBC 50-99 /hpf (0-5) Urine WBC Clumps MOD (NONE) Urine Squamous Epithelial > 8 /hpf (0-5) Cells Urine Bacteria MOD /hpf (NONE) Blood Urea Nitrogen 30 MG/DL (7-18) 23 MG/DL (7-18) Estimat Glomerular Filtration 54 ML/MIN (>89) 66 ML/MIN (>89) Rate Random Glucose 108 MG/DL (74-106) Albumin 3.2 GM/DL 3.0 GM/DL (3.4-5.0) (3.4-5.0) White Blood Count 11.1 TH/MM3 (4.0-11.0) Red Blood Count 3.72 MIL/MM3 3.45 MIL/MM3 (4.00-5.30) (4.00-5.30) Hemoglobin 11.0 GM/DL 10.3 GM/DL (11.6-15.3) (11.6-15.3) Hematocrit 33.7 % 31.4 % (35.0-46.0) (35.0-46.0) Neutrophils (%) (Auto) 79.0 % 77.8 % (16.0-70.0) (16.0-70.0) Neutrophils # (Auto) 8.9 TH/MM3 8.3 TH/MM3 (1.8-7.7) (1.8-7.7) Chloride Level 108 MEQ/L (98-107) Total Protein 6.2 GM/DL (6.4-8.2) Imaging Last Impressions Lower Extremity Ultrasound 12/20/16 0641 Signed Impressions: Service Date/Time: Tuesday, December 20, 2016 07:49 - CONCLUSION: Subcutaneous edema without DVT. Guillermo Plaza MD FACR PE at Discharge GENERAL: This is a well-nourished, well-developed patient, in no apparent distress. CARDIOVASCULAR: Regular rate and rhythm without murmurs, gallops, or rubs. RESPIRATORY: Clear to auscultation. Breath sounds equal bilaterally. No wheezes , rales, or rhonchi. GASTROINTESTINAL: Abdomen soft, non-tender, nondistended. Normal active bowel sounds MUSCULOSKELETAL: Extremities without clubbing, cyanosis, or edema. NEURO: Alert & Oriented x4 to person, place, time, situation. Moves all ext x4 Pt update on day of discharge Patient seen and evaluated today in follow-up for UTI, cellulitis of her hypertension. Hypertension improved Discharge plans discussed with patient, family and case management as well as [facility] Hospital Course With patient's 89-year-old female who recently relocated from [place] here. She did fall in the shower several days ago and had a right leg laceration which was repaired in the emergency room and for which she had been taking clindamycin. The patient became more confused and was hypertensive and came back to the emergency room and was admitted. Patient had some increased erythema around the leg and there was a concern for failure of outpatient treatment however the patient was also found to have a urinary tract infection. Once this was treated the patient's mental status improved. Her blood pressure continued to improve also. Patient was discharged home with home health care Pt Condition on Discharge: Good Discharge Disposition: Disch w/ Home Health Serv Discharge Time: > 30 minutes Discharge Instructions DIET: Follow Instructions for: As Tolerated, No Restrictions Activities you can perform: Regular-No Restrictions Follow up Referrals: PCP Follow-up - 1 Week New Medications: Ciprofloxacin (Cipro) 500 Mg Tab 500 MG PO Q12HR Infection #7 TAB Hydralazine HCl (Hydralazine HCl) 25 Mg Tablet 25 MG PO Q8HR Blood Pressure Management #90 TAB Lactobacillus Acidophilus (Floranex) 1 Gm Pkt 1 GM PO TID gi #90 CAP Continued Medications: Clindamycin (Clindamycin) 150 Mg Cap 450 MG PO Q6H Infection Days 10 Ref 0 CAP Lisinopril (Lisinopril) 20 Mg Tab 20 MG PO DAILY #30 Ref 0 TAB Oxybutynin (Ditropan) 5 Mg Tab 5 MG PO Q12HR Urinary Symptom Managemen #60 Ref 0 TAB Nila Dasilva MD Dec 22, 2016 10:36
[2016-12-22] MEDS ORDERED: WALKER WHEELS/F1 MIS (13:26)
[2016-12-23] MEDS ORDERED: PHARMACY ORDERED LAB ONE (21:45)
== END 2016-12-22 13:28 | disposition home health service (06) | DRG 603 ==
LOC: PHED 16:34 → PHEDA 19:17 → OBSVTOIN 19:18 → PH3B 20:13
PROVIDERS: ADMIT Hospitalist; ATTEND Hospitalist
DX: L03.115 Cellulitis of right lower limb (principal); N39.0 Urinary tract infection, site not specified; I10 Essential (primary) hypertension; S81.811D Laceration without foreign body, right lower leg, subsequent encounter; R41.89 Other symptoms and signs involving cognitive functions and awareness; R29.6 Repeated falls; R53.1 Weakness; R32 Unspecified urinary incontinence; Z96.641 Presence of right artificial hip joint
CPT/HCPCS: 80053; 81001; 83605; 85025; 87040; 87077; 87086; 87186; 93970; 96365; G8987-GP; G8988-GP; J0360; J0696; J3370; J7030; J7050